=== PATIENT | male | born 1935 | race Caucasian/White ===

== ENCOUNTER → 2019-03-18 | Outpatient (CLI) | payer MEDICARE ==
[~2019-03-18] MED LIST: ATENOLOL50 MG PO; AVODART0.5 MG PO; KEFLEX500 MG PO; LEVAQUIN500 MG PO; METOCLOPRAMIDE10 MG PO; PANTOPRAZOLE SO40 MG PO; TERAZOSIN HCL10 MG PO; ULTRAM50 MG PO
== END ==
LOC: RAD 10:32
PROVIDERS: ATTEND Family Medicine
DX: R06.02 Shortness of breath (principal); R60.9 Edema, unspecified
CPT/HCPCS: 93306

== ENCOUNTER → 2020-02-07 | Outpatient (CLI) | payer MEDICARE | LOC: RAD 13:38 | PROVIDERS: ATTEND Family Medicine | DX: R60.0 Localized edema (principal) | CPT/HCPCS: 93970 ==

== ENCOUNTER → 2020-10-25 | Outpatient (CLI) | payer MEDICARE ==
[~2020-10-25] MED LIST changes: +LORAZEPAM INJ 2 MG/ML VIAL ONE
== END ==
LOC: MRI 13:17
PROVIDERS: ATTEND Family Medicine
DX: M54.16 Radiculopathy, lumbar region (principal)
CPT/HCPCS: 72148; J2060

== ENCOUNTER 2021-12-02 14:48 | Outpatient (RCR) | payer MEDICARE ==
[~2021-12-02 14:48] MED LIST changes: -LORAZEPAM INJ 2 MG/ML VIAL ONE
== END 2021-12-20 ==
LOC: PT 14:48
PROVIDERS: ATTEND Specialist
DX: M47.816 Spondylosis without myelopathy or radiculopathy, lumbar region (principal); M70.61 Trochanteric bursitis, right hip; M70.62 Trochanteric bursitis, left hip

== ENCOUNTER → 2023-04-14 | Outpatient (REF) | payer MEDICARE | LOC: CT 13:59 | PROVIDERS: ATTEND Nurse Practitioner Primary Care | DX: R05.3 Chronic cough (principal) | CPT/HCPCS: 71250 ==